=== PATIENT | male | born 1975 | race Caucasian/White ===

== ENCOUNTER 2023-04-11 03:34 | Inpatient (IN) | payer OTHER, SELFPAY ==
[2023-04-11] VITALS (120 sets, daily range): BP systolic 77–126; BP diastolic 45–81; PULSE 63–94; RESP 7–23; TEMP 36.3–36.7; O2SAT 93–100; BMI 40.3; BMI 39.7
--- NOTE | 2023-04-11 03:40 | ECG_ITS ---
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 Measurements Intervals [place] Rate: 65 P: 53 NE: 137 QRS: 44 QRSD: 105 T: -15 QT: 445 QTc: 464 Interpretive Statements SINUS RHYTHM LOW QRS VOLTAGE IN PRECORDIAL LEADS [QRS DEFLECTION < 1.0 mV IN CHEST LEADS] SEPTAL MYOCARDIAL INFARCTION , POSSIBLY ACUTE [40+ ms Q WAVE IN V1/V2] MARKED ST ELEVATION, CONSIDER ANTERIOR INJURY [MARKED ST ELEVATION W/O NORMALLY INFLECTED T-WAVE IN V2-V5] ACUTE [place] No previous ECG available for comparison Electronically Signed On 04-11-2023 21:36:24 SENIOR PORTFOLIO MANAGER by Karlo Ly M.D. [id number]
--- NOTE | 2023-04-11 03:44 | XRR_ITS ---
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 Views: 1 view. COMPARISON: No relevant prior studies available. FINDINGS: Tubes, catheters and devices: Monitor leads and defibrillator pad project over the chest. Lungs: No significant or acute findings. No consolidation. Pleural spaces: No significant costophrenic angle blunting. No pneumothorax. Heart/Mediastinum: Heart size within normal limits given the portable AP technique. Bones/joints: No acute osseous abnormality. XR/XR chest 1V portable [id number] IMPRESSION: No acute abnormality demonstrated.
--- NOTE | 2023-04-11 03:46 | ED_ITS ---
HPI - Chest Pain 2 General: Chief Complaint: Chest Pain Stated Complaint: cp,stomch pain Time Seen by Provider: 04/11/23 03:44 History of Present Illness: 47-year-old male presents emergency depa rtment complaints of substernal chest pain that is a 5 out of 10 that started suddenly while he was driving to work. He states he does feel nauseated. He states the pain is a sharp pressure type pain. He states he has no shortness of breath dizziness or lightheaded feeling. He is a diabetic he denies using tobacco products. He states that exertion seems to make his chest discomfort worse and nothing seems to make it better. Associated symptoms: Reports nausea Review of Systems 2 General: Reports: 10 or more systems reviewed and unremarkable except in HPI and below Card: Reports: chest pain GI: Reports: nausea Physical Exam 2 Narrative: EXAM NARRATIVE: Constitutional: the patient appears well nourished and with normal development. Vital signs reviewed as documented. HENMT: Normocephalic, atraumatic. Extermal ears with normal appearance without drainage. Nose without drainage, normal appearance. Mucus membranes moist. Neck is supple, No jugular venous distension, trachea is midline, no appreciable carotid bruits. No lymphadenopathy. No meningeal signs. Flexion, extension and lateral rotation is without pain. Eyes: Pupils are equal, round, reactive to light and accommodation. No scleral icterus. Extra-ocular movement are intact. Thorax is symmetrical and with equal rise and fall with respirations. Resp: Lungs are clear to auscultation. No wheezes, rales, crackles or ronchi at present. Cardio: Regular rate and rhythm. Positive S1, S2. No appreciable murmurs, rubs or gallops. GI: Abdominal exam reveals normal bowel sounds to all quadrants. No organomegaly. No obvious palpable masses noted. No hepatomegally appreciated. Soft, nontender to palpation. Extremity: Extremities are non-edematous and both femoral and pedal pulses are 2+ and equal bilaterally. Moves all extremities well, sensation in all extremities. Neuro: Alert and oriented x4, person, place, time and situation. Cranial nerves II through XII are grossly intact, there is no focal neurological deficits that I can appreciate at present. Motor strength in the upper and lower extremities are equal and bilateral 5/5. Psych: Cooperative, calm, normal thought process, appropriate judgment. Skin: No lesions, rashes. No gross abnormalities noted. Back: Symmetrical, no obvious deformity, No CVA tenderness Course 2 ED course: STEMI alert was immediately called after twelve-lead EKG was completed. Patient was provided aspirin, Plavix, heparin bolus and heparin drip as well as sublingual nitro. Vital Signs: Vital signs: Vital Signs Temperature 98.1 F 04/11/23 03:42 Pulse Rate 76 04/11/23 03:42 Respiratory Rate 18 04/11/23 03:42 Blood Pressure 126/78 04/11/23 03:42 Pulse Oximetry 100 04/11/23 03:42 Oxygen Delivery Me thod Room Air 04/11/23 03:42 MDM - Chest Pain Medical Decision Making Physical exam completed and documented, I will obtain serial cardiac enzymes, serial twelve-lead EKGs, chest x-ray, CBC, CMP, urinalysis, B-type natriuretic peptide, PT/PTT/INR, and a chest x-ray. I provide cardiac dose aspirin if indicated and nitroglycerin administration if indicated. Pending the review of the twelve-lead EKG I will also consider providing loading dose of heparin and possible heparin drip as well as evaluate the need for nitroglycerin drip, and reevaluate accordingly. I will review any pervious and pertinent medical records for assist in obtaining beneficial medical information to improved the care and treatment of the patient. I will reevaluate in consider hospitalist consultation and cardiology consultation. Medical Records I reviewed the patient's medical records. Lab Data I reviewed the patient's lab results. 04/11/23 03:46 04/11/23 03:46 Radiology Impressions Chest X-Ray 04/11/23 03:44 IMPRESSION: No acute abnormality demonstrated. Laboratory Results WBC 11.74 10^3/uL (3.29-11.43) H 04/11/23 03:46 RBC 5.21 10^6/uL (3.85-5.65) 04/11/23 03:46 Hgb 14.10 g/dL (11.27-16.99) 04/11/23 03:46 Hct 42.9 % (37-53) 04/11/23 03:46 MCV 82.3 fl (82-101) 04/11/23 03:46 MCH 27.1 pg (27-33) 04/11/23 03:46 MCHC 32.9 g/dL (30-55) 04/11/23 03:46 RDW 13.5 % (12.1-15.1) 04/11/23 03:46 Plt Count 337 10^3/cmm (157-399) 04/11/23 03:46 MPV 9.3 fL (7.4-10.4) 04/11/23 03:46 Neut % (Auto) 56.1 % 04/11/23 03:46 Lymph % (Auto) 26.1 % 04/11/23 03:46 George % (Auto) 10.0 % 04/11/23 03:46 Eos % (Auto) 7.1 % 04/11/23 03:46 Baso % (Auto) 0.2 % 04/11/23 03:46 Neut # (Auto) 6.60 10^3/uL (1.8-7.7) 04/11/23 03:46 Lymph # (Auto) 3.1 10^3/uL (0.8-4.8) 04/11/23 03:46 George # (Auto) 1.2 10^3/uL (0.2-0.9) H 04/11/23 03:46 Eos # (Auto) 0.8 10^3/uL (0.0-0.8) 04/11/23 03:46 Baso # (Auto) 0.0 10^3/uL (0.0-0.1) 04/11/23 03:46 Nucleated RBC % (auto) 0 % 04/11/23 03:46 Nucleated RBCs # 0.0 /100WBC 04/11/23 03:46 PT 13.30 SECONDS (12.1-14.9) 04/11/23 03:46 INR 0.98 (0.8-1.2) 04/11/23 03:46 APTT 28.5 SECONDS (23.9-36.7) 04/11/23 03:46 Sodium 132 mmol/L (136-145) L 04/11/23 03:46 Potassium 3.8 mmol/L (3.5-5.1) 04/11/23 03:46 Chloride 96 mmol/L (98-107) L 04/11/23 03:46 Carbon Dioxide 22 mmol/L (22-29) 04/11/23 03:46 Anion Gap 17.8 (5-19) 04/11/23 03:46 BUN 13 mg/dL (6-20) 04/11/23 03:46 Creatinine 0.8 mg/dL (0.7-1.2) 04/11/23 03:46 GFR Calculation 103.6 mL/min (90-130) 04/11/23 03:46 Glucose 296 mg/dL (65-115) H 04/11/23 03:46 Calculated Osmolality 285 mOsm/kg (285-295) 04/11/23 03:46 Calcium 9.0 mg/dL (8.5-10.5) 04/11/23 03:46 Total Bilirubin 0.6 mg/dL (0.15-1.2) 04/11/23 03:46 AST 14 U/L (0-40) 04/11/23 03:46 ALT 14 U/L (0-41) 04/11/23 03:46 Alkaline Phosphatase 106 U/L (40-130) 04/11/23 03:46 Troponin T Baseline 12 ng/L (0-15) 04/11/23 03:46 NT-Pro-B Natriuret Pep < 36 pg/mL (0-125) 04/11/23 03:46 Total Protein 7.5 g/dL (6.6-8.7) 04/11/23 03:46 Albumin 4.0 g/dL (3.5-5.2) 04/11/23 03:46 Globulin 3.5 g/dL (1.3-4.6) 04/11/23 03:46 All radiology interpretation(s) finalized by discharge EKG Data EKG 1: Interpretation: Twelve-lead EKG completed at 340 reviewed at 341 demonstrates sinus rhythm with a ventricular rate of 65 bpm UT interval 137 QRS duration 105 QT 445 QTc [address] elevation in leads V2, V3, V4 with reciprocal changes in leads III and aVF. There is also ST elevation in lead I. These findings are consistent for ST elevated myocardial infarction and the patient currently has active chest pain. Critical Care Time 2 Critical Care Time: Critical Care Time: Yes Total Critical Care Time: 35 Attestation: The patients was emergently evaluated as this patient's presentation and case had a high probability of a clinically significant, sudden, or life threatening deterioration of this patient's initial critical presentation or condition which required my full and direct attention, intervention and personal management. Discharge Plan Discharge Patient Disposition: Admitted As Inpatient Clinical Impression: ST elevation (STEMI) myocardial infarction, Chest pain Condition: Stable Coding Level of Care Code ED Client Care Representative for Gene Obando
[2023-04-11 03:55] LABS: Basophils % 0.2 %; Eosinophils # 0.8 10^3/uL (0.0-0.8); Eosinophils % 7.1 %; Hematocrit 42.9 % (37-53); Lymphocytes # 3.1 10^3/uL (0.8-4.8); Lymphocytes % 26.1 %; Mean Corpuscular HGB Conc 32.9 g/dL (30-55); Mean Corpuscular Hemoglobin 27.1 pg (27-33); Mean Corpuscular Volume 82.3 fl (82-101); Mean Platelet Volume 9.3 fL (7.4-10.4); Monocytes # 1.2 10^3/uL (0.2-0.9); Neutrophils % 56.1 %; Nucleated Red Blood Cells % 0 %; Platelet Count 337 10^3/cmm (157-399); Red Blood Count 5.21 10^6/uL (3.85-5.65); Red Cell Distribution Width 13.5 % (12.1-15.1); White Blood Count 11.74 10^3/uL (3.29-11.43)
[2023-04-11] MEDS: aspirin 81 mg Chew Tablet 324 MG PO (04:00)
--- NOTE | 2023-04-11 04:03 | XACV_ITS ---
Exam Room: 2 Ht: 168 cm Wt: 113 kg BSA: 2.35 m2 Gender: Male : 1975 Any Known Allergies: No known allergies Exam Priority: Routine Indication(s): - Acute anterior wall SC Procedure(s): Procedure Description: Diagnostic procedure Procedure Description: PCI procedure Procedure Description: Left Heart Catheterization Procedure Description: Coronary IVUS Procedure Description: Drug Eluting Coronary Stent Procedure Description: PTCA Procedure Description: Miscellaneous Procedure Description: ACT Procedure Description: Coronary Angiography Diagnostic Cath Status: Emergency Diagnostic Findings * INDICATION: 47 year old male with past medical history of diabetes and prior history of smoking has presented with chest pain that started at 11 PM. It is 5 hours ago. It then started on. At around 2:30 AM he woke up again with chest pain. This time it was severe. It has improved some now. EKG performed in the ER shows anterior ST elevation SC. Powerhouse Electrician was emergently activated. * Left Main has no significant disease. * Circumflex has mild luminal irregularities. * Right Coronary Artery has mild to moderate luminal irregularities. * Proximal Left Anterior Descending: critical 95-99%% stenosis, DARLIN: 2 flow. Thrombus is noted. * Mid Left Anterior Descending: critical 95% stenosis, DARLIN: 2 flow. * First Obtuse Marginal Branch Segment: obstructive ostial 60-70% stenosis, DARLIN: 3 flow. * Coronary angiography shows right dominance. PCI Status: Emergency PCI Indication: Immediate PCI for STEMI Interventional Findings * PROCEDURE DETAIL: We engaged in artery with XB 3.5 guide catheter. IV heparin was administered to maintain anticoagulation. 0.014 run-through guidewire was used to cross the lesions and was put in distal vessel. We proceeded with ballooning with 2.5 x 30 mm semicompliant balloon. This was followed by placement of 3.5 x 34 mm resolute [place] drug-eluting stent from mid to proximal LAD. An overlapping stent measuring 4.0 x 38 mm stent was put in proximal to mid position. There was still some residual stenosis proximally. This was covered with 4.0 x 18mm resolute Antonia drug-eluting stent. At this time we performed IVUS that showed underexpansion of stents in proximal to mid segment. Stents were postdilated using 4.0 x 20 mm NC balloon at high pressure. Final angiogram showed excellent stent expansion, no residual stenosis and DARLIN-3 flow. Guidewire and guide catheter were removed. Patient left the Powerhouse Electrician in a stable condition. * Proximal Left Anterior Descendin% stenosis treated with a MDT R ANTONIA 4.0X38 MELINA, MDT R ANTONIA 4.0X18 MELINA, and MDT NC EUPHORA RX [id number] BALLOON. 0% residual stenosis, DARLIN: 3 flow. * Mid Left Anterior Descendin% stenosis treated with a AB TREK 2.50X30 RX BALLOON, MDT R ANTONIA 3.5X34 MELINA, and MDT NC EUPHORA RX [id number] BALLOON. 0% residual stenosis, DARLIN: 3 flow. Conclusions 1. Critical proximal to mid LAD serial stenosis with thrombus s/p successful revascularization with 3 stents. 2. Proximal Left Anterior Descending was treated with a Drug Eluting Stent, Drug Eluting Stent, and Balloon. 3. Mid Left Anterior Descending was treated with a Balloon, Drug Eluting Stent, and Balloon. Recommendations * Dual antiplatelet therapy with aspirin and Brilinta for atleast 1 year. * High intensity statin therapy. * Outpatient cardiology follow up in 4 weeks. Interventional RX Recommendation: PCI w/o planned CABG Diagnostic RX Recommendation: PCI w/o planned CABG Anticoagulation: Heparin Pressures Phase:Rest AO : 83 / 60 ( 71 ) @ 4:34:00 AM 79 / 60 ( 70 ) @ 4:42:00 AM 82 / 53 ( 60 ) @ 4:55:00 AM 90 / 53 ( 66 ) @ 5:04:00 AM 108 / 63 ( 80 ) @ 5:18:00 AM 107 / 63 ( 80 ) @ 5:18:00 AM LV : 124 / 12 / 38 @ 5:18:00 AM 120 / 10 / 35 @ 5:18:00 AM Valves Phase:DefaultPhase AV : 12.0 @ 5:26:36 AM AV Mean Gradient: 9.0 @ 5:26:36 AM 9.0 @ 5:26:36 AM Clinical Evaluation EBL: 5mL-10mL Procedural Details Pre-Procedure Time Out. Identified patient by full name and date of as verbalized by the patient/guarantor. Does the consent match the physician's order: N/A Emergent; Informed Consent not obtained due to time critical life threat. Accurate & Complete Informed Consent: N/A Emergent; Informed Consent not obtained due to time critical life threat. Inpatient/Outpatient History & Physical on Chart: N/A Emergent; Informed Consent not obtained due to time critical life threat. If H&P is completed, is and addenduem needed: N/A Emergent; Informed Consent not obtained due to time critical life threat; If yes, is the addendum complete: N/A Emergent; Informed Consent not obtained due to time critical life threat. Visualize and Verify Site with Patient/Guarantor: N/A. Relevant Radiology Images available: N/A Emergent; Informed Consent not obtained due to time critical life threat. Pre-op teaching completed and patient verbalized understanding. The risks, benefits, and alternatives of sedation and/or procedure were discussed by physician. The patient agrees to continue. Procedure started. [facility] Clinical Fraility Score: 3: Managing Well. Powerhouse Electrician Indications: ACS <= 24 hours. Chest Pain Symptom Assessment: Typical Angina Symptoms. Cardiovascular Instability: Yes, if yes, Persistant Ischemic Symptoms. Correct patient, site and procedure confirmed by cath team. Current diagnosis: STEMI. PERRLA. Strong, equal hand mint machine operator bilaterally. Lungs clear x 5 lobes. IV Site on Arrival: 18 gauge in the right anticubital. IV Site on Arrival: 18 gauge in the left anticubital. IV Fluids: 0.9% NaCl at KVO. 0 mL infused prior to qc lab technician. Pre Procedural Pulses: bilateral radial was 3+. Oxygen started at 2liters/min via nasal canula. right groin was prepped with chloroprep then draped in the usual sterile fashion. right radial was prepped with chloroprep then draped in the usual sterile fashion. Physician notified. Baseline sample Acquired. HR: 78 BPM. Patient's family unavailable. Equipment: 6F - Radial. Cardiac Cath Pack. ACIST Manifold Kit Model BT 2000. Heparinized Saline (2 units/mL), 1000 mL bag. Physician arrived. Physician scrubbed in. Immediate Pre-Procedure Time Out. Correct Patient: N/A Emergent; Informed Consent not obtained due to time critical life threat; Correct Procedure: N/A Emergent; Informed Consent not obtained due to time critical life threat; Correct Site: N/A Emergent; Informed Consent not obtained due to time critical life threat; Correct Patient Position: N/A Emergent; Informed Consent not obtained due to time critical life threat; Correct Supplies: N/A Emergent; Informed Consent not obtained due to time critical life threat; Dried Flammable Prep: N/A Emergent; Informed Consent not obtained due to time critical life threat; Blood Products Available: N/A Emergent; Informed Consent not obtained due to time critical life threat;. Lidocaine 1% infiltrated to the right radial. Arterial access obtained. 6 turkish XB 3 guide catheter was inserted over the exchange J wire. Cineography of the LCA performed. Runthrough guidewire was advanced through the guide catheter to lesion in the LAD. add inventory: endoflator, co-ems helicopter pilot, Runthrough guidewire. Inflation number : 1 A AB TREK 2.50X30 RX BALLOON was prepped and advanced across the Mid LAD , then inflated to 8 BRUCE for 0:12 seconds. Inflation number: 2 The AB TREK 2.50X30 RX BALLOON was reinflated across the Mid LAD, to 8 BRUCE for 0:11 seconds. Inflation number: 3 The AB TREK 2.50X30 RX BALLOON was reinflated across the Mid LAD, to 11 BRUCE for 0:12 seconds. Inflation number: 4 The AB TREK 2.50X30 RX BALLOON was reinflated across the Mid LAD, to 14 BRUCE for 0:19 seconds. Balloon out. Stent inserted to lesion in the mid LAD. Inflation Number : 5 A MDT R ANTONIA 3.5X34 MELINA -Lot Number# [id number] was prepped and advanced across the Mid LAD. The stent was deployed at 12 BRUCE for 0:21 seconds. Exp 2024-03-03. Stent balloon out over wire. Results checked. Inflation Number : 1 A MDT R ANTONIA 4.0X38 MELINA -Lot Number# [id number] prepped and advanced across the Prox LAD. The stent was deployed at 12 BRUCE for 0:23 seconds. Exp 2023-06-06. 4.0 x 15 Resolute [place] stent in, size too short. Removed intact. Inflation Number : 2 A MDT R ANTONIA 4.0X18 MELINA -Lot Number# [id number] prepped and advanced across the Prox LAD. The stent was deployed at 12 BRUCE for 0:22 seconds. Exp 2025-08-08. Stent balloon out over wire. IVUS catheter in. Ultrasound performed of the LAD post PCI. IVUS catheter out. Inflation number : 6 A MDT NC EUPHORA RX 4.93M56CD BALLOON was prepped and advanced across the Mid LAD , then inflated to 12 BRUCE for 0:21 seconds. Inflation number: 7 The MDT NC EUPHORA RX 4.95N80RT BALLOON was reinflated across the Mid LAD, to 18 BRUCE for 0:15 seconds. Inflation number: 8 The MDT NC EUPHORA RX 4.84N24RV BALLOON was reinflated across the Mid LAD, to 18 BRUCE for 0:11 seconds. Inflation number: 9 The MDT NC EUPHORA RX 4.11V87EE BALLOON was reinflated across the Mid LAD, to 20 BRUCE for 0:08 seconds. Inflation number: 3 The MDT NC EUPHORA RX 4.04Z89TH BALLOON was reinflated across the Prox LAD, to 20 BRUCE for 0:13 seconds. Balloon out. Results checked. IVUS catheter in. Ultrasound performed of the LAD post PCI. IVUS catheter out. PCI Indication : Immediate PCI for STEMI. ACT drawn. Results out iof range HI. Will redraw. Wire out. Guide catheter out over the exchange J wire. A 5 turkish JR4 catheter in over the exchange J wire. Multiple views taken of right coronary artery. Catheter redirected to the LV. EDP Sample taken: LV 124/12,38; HR: 80 BPM; SpO2: 99%. ACT drawn. Results 385 seconds. Therapeutic limits - pre-heparin administration 90-150 seconds and monitoring heparin during a vascular procedure >250 seconds. Pullback taken: LV 120/10,35; AO 108/63(80); Mean: 9mmHg, Peak to Peak: 12mmHg, SEP: 17sec/min; HR: 77 BPM; SpO2: 98%. Catheter removed over the exchange J wire. Dr. Ruvalcaba scrubbed out. A TR Band was successful obtaining hemostatsis at the Right Radial artery insertion site. Post Procedure: Pulses reassessed and unchanged. PERRLA. Strong, equal hand mint machine operator bilaterally. No VTE prophylaxis required. Medication's Wasted: Nitro = 49.8 mg. Medication's Wasted: Other = Versed 1 mg. Medication's Wasted: Heparin = 3000 units. Medication's Wasted: Other = Aggrastat 100 mL. Medication's Wasted: Other = Lasix 60 mg. Medication's Wasted: Other = Cardene 24.75 mg. Total IV fluids: 66 mL. Post-op diagnosis: Subtotal occlusion of Prox to Mid LAD s/p 3 stents. PCI Indication: STEMI. Complications: none. Estimated blood loss: 5mL-10mL. Responsiveness - Normal response to verbal stimuli; alert and oriented, PERRLA. Airway - Unaffected, no intervention required; spontaneous ventilation. Circulation: W/N/L, pulses unchanged. Nausea/Vomiting: No. Procedure completed. Patient transferred by wheelchair to ICU. Vital chart was stopped. Access Site Site: Right Radial artery Sheath Size: 6 Fr Hemostasis Method: TR Band Hemostasis Success: Successful Procedure Medications Start: 4:29 AM Stop: 4:29 AM Medication: Versed Amount: 1 mg Route: I.V. Start: 4:30 AM Stop: 4:30 AM Medication: Fentanyl Amount: 50 mcg Route: I.V. Start: 4:30 AM Stop: 4:30 AM Medication: Versed Amount: 1 mg Route: I.V. Start: 4:31 AM Stop: 4:31 AM Medication: Nitrogylcerin Amount: 200 mcg Route: I.A. Start: 4:32 AM Stop: 4:32 AM Medication: Heparin Amount: 6000 units Route: I.V. Start: 4:44 AM Stop: 4:44 AM Medication: Versed Amount: 1 mg Route: I.V. Start: 4:44 AM Stop: 4:44 AM Medication: Fentanyl Amount: 50 mcg Route: I.V. Start: 4:46 AM Stop: 4:46 AM Medication: Heparin Amount: 1000 units Route: I.V. Start: 4:54 AM Stop: 4:54 AM Medication: Versed Amount: 1 mg Route: I.V. Start: 4:59 AM Stop: 4:59 AM Medication: Versed Amount: 1 mg Route: I.V. Start: 4:59 AM Stop: 4:59 AM Medication: Heparin Amount: 1000 units Route: I.V. Start: 5:08 AM Stop: 5:08 AM Medication: Neosynephrine Amount: 100 mcg Route: I.V. Start: 5:09 AM Stop: 5:09 AM Medication: Cardene Amount: 250 mcg Route: I.C. Start: 5:19 AM Stop: 5:19 AM Medication: Lasix (furosemide) Amount: 40 mg Route: I.V. I, the attending physician, have reviewed and verified all procedure medications. Yes, all medications given per verbal order History/Risk Factors Hypertension: No Dyslipidemia: No Peripheral Arterial Disease (PAD): No Myocardial Infarction (SC): No Obesity: Yes Renal Disease: No Tobacco Use: Never Prior Interventions PCI: No CABG: No Valve Surgery: No Report Signatures Finalized by Ever Ruvalcaba MD on 04/25/2023 04:57 PM
[2023-04-11 04:06] LABS: INR 0.98 (0.8-1.2)
[2023-04-11 04:07] LABS: Partial Thromboplastin Time 28.5 SECONDS (23.9-36.7)
[2023-04-11] MEDS: clopidogrel 300 mg Tablet 600 MG PO (04:08)
[2023-04-11] MEDS: heparin 5,000 unit/mL INJ 1 mL 4000 UNIT IVP (04:08)
[2023-04-11 04:14] LABS: Troponin(5th) Baseline 12 ng/L (0-15)
--- NOTE | 2023-04-11 04:16 | P.HP_ITS ---
Providers/Chief Complaint 2 Admitting Physician: Ever Ruvalcaba MD/ Cardiology Chief Complaint: cp,stomch pain History of Present Illness Miles malcolm is a 47 year old male with past medical history of diabetes and prior history of smoking has presented with chest pain that started at 11 PM. It is 5 hours ago. It then started on. At around 2:30 AM he woke up again with chest pain. This time it was severe. It has improved some now. EKG performed in the ER shows anterior ST elevation [place]. Candy Cooker Helper was emergently activated. Review of Systems 2 General: Reports: 10 or more systems reviewed and unremarkable except in HPI and below Card: Reports: chest pain Resp: Denies: dyspnea GI: Reports: nausea Musc: Denies: back pain Medications/Allergies Allergies Allergy/AdvReac Type Severity Reaction Status Date / Time No Known Allergies Allergy Verified 04/11/23 03:48 Vitals/I&O/Wt Last Vital Signs Temp 98.1 F 04/11/23 03:42 Pulse 76 04/11/23 03:42 Resp 18 04/11/23 03:42 BP 126/78 04/11/23 03:42 Pulse Ox 100 04/11/23 03:42 O2 Del Method Room Air 04/11/23 03:42 Weight last 48 hrs Weight 250 lb Physical Exam 2 Narrative: GENERAL: Patient is alert, awake and oriented x3. [] NECK: No jugular vein distension. [] HEENT: No cyanosis. No icterus. No pallor. [] HEART: Regular S1 and S2. No murmur, rub or gallop. [] LUNGS: Clear to auscultate bilaterally. [] CENTRAL NERVOUS SYSTEM: Grossly nonfocal. [] EXTREMITIES: Lower extremities with no edema bilaterally. Data 04/11/23 03:46 04/11/23 03:46 A&P Assessment and plan (1) ST elevation (STEMI) myocardial infarction: Qualifiers: Involved coronary artery: unspecified coronary artery Qualified Code(s): I21.3 - ST elevation (STEMI) myocardial infarction of unspecified site (2) Diabetes: Plan Patient has presented with anterior wall ST elevation [place]. He will be emergently taken to cardiac [employer] Helper for coronary angiography and PCI. Risks and benefits of the procedure have been discussed He has been loaded with aspirin and Plavix. IV heparin bolus given. We will order echocardiogram. Attestations 2 Medical Necessity Statement*: Care expected to cross 2 midnights. Patient has presented with acute anterior wall ST elevation [place] and is emergently going to cardiac [employer]per for coronary angiography with PCI. Coding Level of Care Code Acute Code for [facility] Fwd Diagnoses ST elevation (STEMI) myocardial infarction I21.3 Involved coronary artery: unspecified coronary artery Diabetes E11.9
[2023-04-11 04:23] LABS: Alanine Aminotransferase 14 U/L (0-41); Alkaline Phosphatase 106 U/L (40-130); Blood Urea Nitrogen 13 mg/dL (6-20); Carbon Dioxide 22 mmol/L (22-29); Chloride 96 mmol/L (98-107); Globulin 3.5 g/dL (1.3-4.6); Glomerular Filtration Rate 103.6 mL/min (90-130); Glucose 296 mg/dL (65-115); NT Pro B Type Natriuretic Pept < 36 pg/mL (0-125); Osmolality Calculated 285 mOsm/kg (285-295); Sodium 132 mmol/L (136-145); Total Bilirubin 0.6 mg/dL (0.15-1.2); Total Protein 7.5 g/dL (6.6-8.7)
[2023-04-11 04:26] LABS: Anion Gap 17.8 (5-19); Aspartate Amino Transferase 14 U/L (0-40); Potassium 3.8 mmol/L (3.5-5.1)
--- NOTE | 2023-04-11 05:34 | USCV_ITS ---
Miles Morales Age: 47 Gender: M : 1975 Exam Date: 04/11/2023 06:41 Ordering Phys: Ever Ruvalcaba M.D ([email or web address]) Technologist: Troy Butler [place] [facility] [place]: [place] BP: / HR: 75 Rhythm: Sinus Technical Quality: Adequate MEASUREMENTS (Male / Female) Normal Values 2D ECHO LV Diastolic Diameter PLAX 3.3 cm 4.2 - 5.9 / 3.9 - 5.3 cm LV Systolic Diameter PLAX 2.3 cm IVS Diastolic Thickness 1.1 cm 0.6 - 1.0 / 0.6 - 0.9 cm IVS Systolic Thickness 1.5 cm LVPW Diastolic Thickness 1.2 cm 0.6 - 1.0 / 0.6 - 0.9 cm LVPW Systolic Thickness 1.9 cm LVOT Diameter 2.1 cm LV Ejection Fraction 2D Teich 58.6 % LV Ejection Fraction MOD 2C 32.4 % LV Ejection Fraction 2C AL 32.6 % LA Diameter 3.8 cm M-MODE Aortic Annulus Diameter 2.9 cm LA Ao Ratio MM 1.5 DOPPLER AV Peak Velocity 130.0 cm/s LVOT Peak Velocity 92.0 cm/s AV Area Cont Eq vti 2.8 cm squared AV Area Cont Eq pk 2.4 cm squared MV Area PHT 4.6 cm squared Mitral E to A Ratio 0.8 MV E' Velocity 29.5 cm/s Mitral E to MV E' Ratio 6.5 Mitral E to LV E' Lateral Ratio 5.5 Mitral E to LV E' Septal Ratio 7.9 TR Peak Velocity 143.3 cm/s TR Peak Gradient 8.2 mmHg TV Peak E Velocity 84.0 cm/s Right Atrial Pressure 3.0 mmHg Pulmonary Artery Systolic Pressu 11.2 mmHg RV Acceleration Time 0.2 s FINDINGS Left Ventricle Technically limited quality echocardiogram because of poor ultrasonic windows. Left ventricle is normal in size. LV systolic function is moderately reduced with EF of 35-40%. Severe hypokinesis of anterior wall. Grade 1 diastolic dysfunction Right Ventricle Normal in size and function Right Atrium Normal in size Left Atrium Normal in size Mitral Valve Structurally normal mitral valve. Mitral valve regurgitation. Aortic Valve Structurally normal aortic valve. No significant stenosis or regurgitation. Tricuspid Valve Mild tricuspid regurgitation. Insufficient TR jet to calculate RVSP. Pulmonic Valve Not well visualized Pericardium Normal Aorta Normal in size IVC Not well visualized CONCLUSIONS Technically limited quality echocardiogram because of poor ultrasonic windows. LV systolic function is moderately reduced with EF of 35 to 40%. Above-mentioned regional wall motion abnormalities. Mild mitral regurgitation Mild tricuspid regurgitation No comparison studies are available. Ever Ruvalcaba MD (Electronically Signed) Final Date: 11 April 2023 16:53 S
--- NOTE | 2023-04-11 05:44 | ECG_ITS ---
[facility] Test Date: 2023-04-11 Pat Name: Miles Morales Department: Room: [facility] Gender: Male Clinical Lab Technologist: : 1975 Requested By: Julito Quinteros Order Number: [id number] Sharri MD: Karlo Ly M.D. Measurements Intervals [place] Rate: 78 P: 37 IL: 143 QRS: 50 QRSD: 97 T: 38 QT: 403 QTc: 461 Interpretive Statements SINUS RHYTHM LOW QRS VOLTAGE IN PRECORDIAL LEADS [QRS DEFLECTION < 1.0 mV IN CHEST LEADS] ANTEROSEPTAL MYOCARDIAL INFARCTION [40+ ms Q WAVE IN V1-V4], POSSIBLY ACUTE ST ELEVATION, CONSIDER INFERIOR INJURY [MARKED ST ELEVATION W/O NORMALLY INFLECTED T WAVE IN II/aVF] ACUTE NC Compared to ECG 04/11/2023 03:40:21 No significant changes Electronically Signed On 04-11-2023 21:46:21 SLIP OPERATOR by Karlo Ly M.D. [email or web address] [email or web address].Enpirion/store/[id number]
[2023-04-11 08:05] LABS: Glucose Point of Care 205 mg/dL (70-110)
[2023-04-11] MEDS: metoprolol tartrate 25 mg Tablet 12.5 MG PO ×2 (08:08→20:52)
[2023-04-11] MEDS: aspirin 81 mg EC Tablet PO (08:08)
[2023-04-11] MEDS: insulin lispro 100 unit/1 mL SUBCUT ×4 (09:06→21:04)
--- NOTE | 2023-04-11 09:44 | ECG_ITS ---
[facility] Test Date: 2023-04-11 Pat Name: Miles Morales Department: Room: [facility]05 Gender: Male Wincher: : 1975 Requested By: Julito Quinteros Order Number: [id number] Sharri MD: Karlo Ly M.D. Measurements Intervals [place] Rate: 73 P: 30 AL: 134 QRS: 64 QRSD: 93 T: 55 QT: 416 QTc: 459 Interpretive Statements SINUS RHYTHM LOW QRS VOLTAGE IN PRECORDIAL LEADS [QRS DEFLECTION < 1.0 mV IN CHEST LEADS] ANTEROSEPTAL MYOCARDIAL INFARCTION [40+ ms Q WAVE IN V1-V4], OF INDETERMINATE AGE Compared to ECG 04/11/2023 05:58:32 ST (T wave) deviation no longer present Myocardial infarct finding still present Electronically Signed On 04-11-2023 21:46:25 DIRECTOR OF EXHIBITS by Karlo Ly M.D. [email or web address]Get Smart Contentaultman [facility]/store/OM/[id number]
[2023-04-11 10:29] LABS: Troponin 5 6HR 4581 ng/L (0-15); Troponin 5 6HR Delta 4569 ng/L (0-12)
[2023-04-11 11:04] LABS: Glucose Point of Care 214 mg/dL (70-110)
[2023-04-11] MEDS: acetaminophen 325 mg Tablet 650 MG PO ×2 (13:28→20:53)
[2023-04-11 16:45] LABS: Glucose Point of Care 144 mg/dL (70-110)
[2023-04-11] MEDS: ticagrelor 90 mg Tablet 180 MG PO (17:34)
--- NOTE | 2023-04-11 18:33 | PC.NURSE ---
Shift SUmmary: Uneventful shift. Patient rested in bed for much of the day, but was up to a chair for about 3 hours. Ambulated in the hallway with no issues and up the the bathroom multiple times. TR band removed without bleeding.
[2023-04-11] MEDS: atorvastatin 40 mg Tablet 80 MG PO (20:52)
[2023-04-11] MEDS: alum-mag-hydroxide-sime 30 mL UDC PO (20:55)
[2023-04-11 21:04] LABS: Glucose Point of Care 175 mg/dL (70-110)
[2023-04-12] VITALS (18 sets, daily range): BP systolic 72–122; BP diastolic 48–75; PULSE 62–85; RESP 18; TEMP 36.5–37.1; O2SAT 94–97
[2023-04-12 03:57] LABS: Basophils % 0.2 %; Eosinophils # 0.7 10^3/uL (0.0-0.8); Eosinophils % 4.5 %; Hematocrit 40.1 % (37-53); Lymphocytes # 1.9 10^3/uL (0.8-4.8); Lymphocytes % 13.2 %; Mean Corpuscular HGB Conc 32.7 g/dL (30-55); Mean Corpuscular Hemoglobin 26.5 pg (27-33); Mean Corpuscular Volume 81.2 fl (82-101); Mean Platelet Volume 9.2 fL (7.4-10.4); Monocytes # 1.5 10^3/uL (0.2-0.9); Monocytes % 10.4 %; Neutrophils # 10.39 10^3/uL (1.8-7.7); Neutrophils % 71.2 %; Nucleated Red Blood Cells % 0 %; Platelet Count 297 10^3/cmm (157-399); Red Blood Count 4.94 10^6/uL (3.85-5.65); Red Cell Distribution Width 13.6 % (12.1-15.1); White Blood Count 14.58 10^3/uL (3.29-11.43)
[2023-04-12 04:19] LABS: Blood Urea Nitrogen 9 mg/dL (6-20); Carbon Dioxide 25 mmol/L (22-29); Chloride 97 mmol/L (98-107); Glomerular Filtration Rate 120.9 mL/min (90-130); Glucose 181 mg/dL (65-115); Osmolality Calculated 277 mOsm/kg (285-295); Sodium 132 mmol/L (136-145)
[2023-04-12 04:22] LABS: Anion Gap 13.6 (5-19); Potassium 3.6 mmol/L (3.5-5.1)
[2023-04-12 07:39] LABS: Glucose Point of Care 168 mg/dL (70-110)
--- NOTE | 2023-04-12 08:09 | P.DS_ITS ---
Discharge Providers Date of Admission: 04/11/23 05:36 Date of Discharge: April 12, 2023 Attending Provider at Admission: Ever Ruvalcaba M.D Attending Provider at Discharge: Ever Ruvalcaba M.D Diagnoses at Discharge Discharge Diagnosis (1) ST elevation (STEMI) myocardial infarction: Status: Acute Qualifiers: Involved coronary artery: unspecified coronary artery Qualified Code(s): I21.3 - ST elevation (STEMI) myocardial infarction of unspecified site (2) Diabetes: Status: Acute Reason for Visit Reason for Visit: Chest pain Brief History: 47 year old male with past medical history of diabetes and prior history of smoking has presented with chest pain that started at 11 PM. It is 5 hours ago. It then improved. At around 2:30 AM he woke up again with chest pain. This time it was severe. It has improved some now. EKG performed in the ER shows anterior ST elevation [place]. [employer] was emergently activated. Hospital Course Hospital Course Coronary angiography demonstrated serial critical lesions from proximal to mid LAD ranging from 90 to 99% stenosis. Thrombus was also seen in proximal LAD. This was culprit for ST elevation [place]. He underwent successful revascularization with MELINA x 3. OM branch also has ostial lesion however it is small to medium sized vessel. Plan for medical management. Echo shows a moderately reduced LV systolic function. He has tolerated medications. Plan for discharge home with close cardiology follow-up. Physical Exam Narrative: GENERAL: Patient is alert, awake and oriented x3. [] NECK: No jugular vein distension. [] HEENT: No cyanosis. No icterus. No pallor. [] HEART: Regular S1 and S2. No murmur, rub or gallop. [] LUNGS: Clear to auscultate bilaterally. [] CENTRAL NERVOUS SYSTEM: Grossly nonfocal. [] EXTREMITIES: Lower extremities with no edema bilaterally. Discharge Data Studies Completed and Pending Completed Studies During Hospitalization Category Date Time Status XR chest 1V portable [id number] Stat Exams 04/11/23 03:44 Completed CV. echo complete* [id number] Routine Ultrasound 04/11/23 05:34 Completed Pending at discharge Category Date Time Status HAMMER [employer]NER request for service Routine Exams 04/11/23 04:03 Taken Basic Metabolic Panel AM LABS Lab 04/13/23 04:00 Ordered Basic Metabolic Panel AM LABS Lab 04/14/23 04:00 Ordered Complete Blood Count w/Auto AM LABS Lab 04/13/23 04:00 Ordered Complete Blood Count w/Auto AM LABS Lab 04/14/23 04:00 Ordered Radiology Impressions Chest X-Ray 04/11/23 03:44 IMPRESSION: No acute abnormality demonstrated. Laboratory Results WBC 14.58 10^3/uL (3.29-11.43) H 04/12/23 03:40 RBC 4.94 10^6/uL (3.85-5.65) 04/12/23 03:40 Hgb 13.10 g/dL (11.27-16.99) 04/12/23 03:40 Hct 40.1 % (37-53) 04/12/23 03:40 MCV 81.2 fl (82-101) L 04/12/23 03:40 MCH 26.5 pg (27-33) L 04/12/23 03:40 MCHC 32.7 g/dL (30-55) 04/12/23 03:40 RDW 13.6 % (12.1-15.1) 04/12/23 03:40 Plt Count 297 10^3/cmm (157-399) 04/12/23 03:40 MPV 9.2 fL (7.4-10.4) 04/12/23 03:40 Neut % (Auto) 71.2 % 04/12/23 03:40 Lymph % (Auto) 13.2 % 04/12/23 03:40 [place] % (Auto) 10.4 % 04/12/23 03:40 Eos % (Auto) 4.5 % 04/12/23 03:40 Baso % (Auto) 0.2 % 04/12/23 03:40 Neut # (Auto) 10.39 10^3/uL (1.8-7.7) H 04/12/23 03:40 Lymph # (Auto) 1.9 10^3/uL (0.8-4.8) 04/12/23 03:40 [place] # (Auto) 1.5 10^3/uL (0.2-0.9) H 04/12/23 03:40 Eos # (Auto) 0.7 10^3/uL (0.0-0.8) 04/12/23 03:40 Baso # (Auto) 0.0 10^3/uL (0.0-0.1) 04/12/23 03:40 Nucleated RBC % (auto) 0 % 04/12/23 03:40 Nucleated RBCs # 0.0 /100WBC 04/12/23 03:40 PT 13.30 SECONDS (12.1-14.9) 04/11/23 03:46 INR 0.98 (0.8-1.2) 04/11/23 03:46 APTT 28.5 SECONDS (23.9-36.7) 04/11/23 03:46 Sodium 132 mmol/L (136-145) L 04/12/23 03:40 Potassium 3.6 mmol/L (3.5-5.1) 04/12/23 03:40 Chloride 97 mmol/L (98-107) L 04/12/23 03:40 Carbon Dioxide 25 mmol/L (22-29) 04/12/23 03:40 Anion Gap 13.6 (5-19) 04/12/23 03:40 BUN 9 mg/dL (6-20) 04/12/23 03:40 Creatinine 0.7 mg/dL (0.7-1.2) 04/12/23 03:40 GFR Calculation 120.9 mL/min (90-130) 04/12/23 03:40 Glucose 181 mg/dL (65-115) H 04/12/23 03:40 POC Glucose 168 mg/dL (70-110) H 04/12/23 07:36 Calculated Osmolality 277 mOsm/kg (285-295) L 04/12/23 03:40 Calcium 9.0 mg/dL (8.5-10.5) 04/12/23 03:40 Total Bilirubin 0.6 mg/dL (0.15-1.2) 04/11/23 03:46 AST 14 U/L (0-40) 04/11/23 03:46 ALT 14 U/L (0-41) 04/11/23 03:46 Alkaline Phosphatase 106 U/L (40-130) 04/11/23 03:46 Troponin T Baseline 12 ng/L (0-15) 04/11/23 03:46 Troponin T Hi Sens 6Hr 4581 ng/L (0-15) H 04/11/23 09:35 Troponin T Hi Sens 6Hr Delta 4569 ng/L (0-12) H* 04/11/23 09:35 NT-Pro-B Natriuret Pep < 36 pg/mL (0-125) 04/11/23 03:46 Total Protein 7.5 g/dL (6.6-8.7) 04/11/23 03:46 Albumin 4.0 g/dL (3.5-5.2) 04/11/23 03:46 Globulin 3.5 g/dL (1.3-4.6) 04/11/23 03:46 Vitals Last Vital Signs Temp 98.6 F 04/12/23 07:30 Pulse 69 04/12/23 07:30 Resp 11 L 04/11/23 09:25 BP 109/68 04/12/23 07:30 Pulse Ox 94 04/12/23 03:00 O2 Del Method Room Air 04/12/23 03:00 Discharge Plan Discharge Patient Disposition: Home Condition: Stable Prescriptions: New atorvastatin 40 mg Tablet 80 mg PO BEDTIME Qty: 90 3RF aspirin 81 mg Tablet,Delayed Release (Dr/Ec) 81 mg PO DAILY Qty: 90 3RF metoprolol tartrate 25 mg Tablet 12.5 mg PO BID@0900,2100 Qty: 120 3RF Brilinta 90 mg Tablet 90 mg PO BID Qty: 120 3RF Continued Trulicity 1.5 mg/0.5 mL pen injector 1.5 mg SUBCUT Q7D Rx Instructions: ON MONDAY Nexium 20 mg Capsule,Delayed Release(Dr/Ec) 20 mg PO DAILY Discontinued lisinopril-hydrochlorothiazide 20-12.5 mg tablet 1 tab PO DAILY Discharge Orders: Discharge Order (Routine); Ordered 04/12/23 Ordered By: Ever Ruvalcaba Referrals: Citlali Lorenzo NP [Referring] - Eun Howard FNP [Nurse Practitioner] - 7-10 days Discharge Diet: Cardiac and Diabetic Discharge Activity: Increase activity as tolerated Patient Instructions: Coronary Angioplasty (DC), Opioid Safety Discharge Attestations Time Spent in Discharge Care*: greater than 30 min Quality Metrics Clinical Quality Measures [ Acute Myocardial Infaction { Clinical Trial Participant: No; Contraindication to aspirin: None; Aspirin prescribed; Contraindication to statin: None; Statin prescribed; Contraindication to PCI: None; PCI performed;}] Coding Level of Care Code Acute Code for [facility] Fwd Diagnoses ST elevation (STEMI) myocardial infarction I21.3 Involved coronary artery: unspecified coronary artery Diabetes E11.9
[2023-04-12] MEDS: metoprolol tartrate 25 mg Tablet 12.5 MG PO (08:10)
[2023-04-12] MEDS: aspirin 81 mg EC Tablet PO (08:11)
[2023-04-12] MEDS: insulin lispro 100 unit/1 mL SUBCUT (08:12)
[2023-04-12] MEDS: ticagrelor 90 mg Tablet PO (08:12)
--- NOTE | 2023-04-12 09:44 | PC.NURSE ---
Patient discharged at 0915. Patient is awake, alert, and oriented. Bilateral IVs removed. new medication, new appointment, wrist restrictions, and activity educaiton provided to patient and his who was at bedside. Emphasized importance of taking brillinta as ordered. Received morning brillinta and aspirin. work release provided. Patient signature form signed.
== END 2023-04-12 09:15 | disposition home or self-care (01) | DRG 322 ==
LOC: ER 04:00 → CCL 04:01 → ICU 05:37
PROVIDERS: Admitting Provider Internal Medicine; Emergency Provider Internal Medicine; Visit Provider Internal Medicine
PROC: 027036Z Dilation of Coronary Artery, One Artery with Three Drug-eluting Intraluminal Devices, Percutaneous Approach (ICD-10-PCS; principal; 2023-04-11 04:00)
PROC: 027036Z Dilation of Coronary Artery, One Artery with Three Drug-eluting Intraluminal Devices, Percutaneous Approach (ICD-10-PCS; 2023-04-11 04:00)
DX: I21.02 ST elevation (STEMI) myocardial infarction involving left anterior descending coronary artery (principal); I50.20 Unspecified systolic (congestive) heart failure; E11.9 Type 2 diabetes mellitus without complications; Z87.891 Personal history of nicotine dependence; Z79.85 Long-term (current) use of injectable non-insulin antidiabetic drugs
CPT/HCPCS: 36415; 36416; 71045; 80048; 80053; 82962; 83880; 84484; 85025; 85347; 85610; 85730; 92978; 93005; 93306; 93458; 96361; 96365; 96367; 96372; 96375; 96376; 99152; 99153; 99285; C1725; C1753; C1769; C1874; C1887; C1894; C9600; J1644; J1815; J1940; J2250; J2371; J3010; J3490; J7050; Q9967

== ENCOUNTER → 2023-04-21 10:17 | Outpatient (BNVA) | payer OTHER, SELFPAY | PROVIDERS: PCP Nurse Practitioner Family; Visit Provider Nurse Practitioner Family | DX: I25.10 Atherosclerotic heart disease of native coronary artery without angina pectoris (principal); Z09 Encounter for follow-up examination after completed treatment for conditions other than malignant neoplasm; Z79.899 Other long term (current) drug therapy | CPT/HCPCS: 36415; 80048 ==

== ENCOUNTER 2023-05-09 10:25 | Outpatient (RCR) | payer OTHER, SELFPAY | END 2023-06-01 23:59 | disposition home or self-care (01) | LOC: CR 10:25 | PROVIDERS: PCP Nurse Practitioner Family; Referring Provider Internal Medicine; Visit Provider Internal Medicine | DX: Z95.5 Presence of coronary angioplasty implant and graft (principal) | CPT/HCPCS: 93798 ==

== ENCOUNTER 2023-06-02 11:02 | Outpatient (RCR) | payer OTHER, SELFPAY | END 2023-07-02 23:59 | disposition home or self-care (01) | LOC: CR 11:02 | PROVIDERS: PCP Nurse Practitioner Family; Referring Provider Internal Medicine; Visit Provider Internal Medicine | DX: Z95.5 Presence of coronary angioplasty implant and graft (principal) | CPT/HCPCS: 93798 ==

== ENCOUNTER 2023-12-07 14:43 | Outpatient (CLI) | payer OTHER, SELFPAY ==
--- NOTE | 2023-12-07 15:00 | USCV_ITS ---
Miles Morales Age: 48 Gender: M : 1975 Exam Date: 12/07/2023 15:10 Ordering Phys: Ever Ruvalcaba M.D ([email or web address]) Technologist: JUSTINE Exam Location: [facility] Indication: LV FUNCTION BP: 130 / 80 HR: 78 Rhythm: Sinus Technical Quality: Adequate MEASUREMENTS (Male / Female) Normal Values 2D ECHO LV Diastolic Diameter PLAX 4.7 cm 4.2 - 5.9 / 3.9 - 5.3 cm IVS Diastolic Thickness 1.2 cm 0.6 - 1.0 / 0.6 - 0.9 cm IVS Systolic Thickness 1.4 cm LVPW Diastolic Thickness 1.6 cm 0.6 - 1.0 / 0.6 - 0.9 cm LVPW Systolic Thickness 1.7 cm LVOT Diameter 2.0 cm LV Ejection Fraction 2D Teich 44.0 % LV Ejection Fraction MOD 4C 39.6 % LV Ejection Fraction MOD 2C 58.3 % LV Ejection Fraction 2C AL 60.6 % LA Diameter 3.2 cm RA Systolic Volume 4C AL 23.8 ml RA Systolic Volume 4C MOD 23.1 ml LA Sys Volume AL 44.6 cm cubed LA Sys Volume Index AL 18.8 cm cubed/m squared Aorta at Sinotubular Diameter 2.3 cm IVC Diameter 1.4 cm M-MODE LA Ao Ratio MM 1.2 AV Cusp Separation MM 1.8 cm DOPPLER AV Peak Velocity 165.0 cm/s LVOT Peak Velocity 117.0 cm/s AV Area Cont Eq vti 2.1 cm squared AV Area Cont Eq pk 2.2 cm squared MV Peak Velocity 124.0 cm/s MV Area PHT 4.1 cm squared Mitral E to A Ratio 1.2 TR Peak Velocity 181.0 cm/s TR Peak Gradient 13.1 mmHg TR Mean Velocity 149.0 cm/s TR Mean Gradient 9.3 mmHg TR Velocity Time Integral 59.5 cm TV Peak E Velocity 64.0 cm/s Right Atrial Pressure 3.0 mmHg Pulmonary Artery Systolic Pressu 16.1 mmHg PV Peak Velocity 107.0 cm/s RV Ejection Time 0.3 s FINDINGS Left Ventricle Left ventricle is normal in size. LV systolic function is normal with EF of 50 to 55%. No regional wall motion abnormalities are seen. Right Ventricle Normal in size and function Right Atrium Normal in size Left Atrium Normal in size Mitral Valve Structurally normal mitral valve. Mild mitral regurgitation. Aortic Valve Structurally normal aortic valve. No significant stenosis. Tricuspid Valve Mild tricuspid regurgitation. Pulmonary artery systolic pressure is normal. Pulmonic Valve Not well visualized Pericardium Normal Aorta Normal in size IVC Appears to be normal CONCLUSIONS LV systolic function is normal with EF of 50-55% Mild mitral regurgitation Mild tricuspid regurgitation Compared to prior echocardiogram from 04/2023, LV systolic function has improved significantly and is normal now. Ever Ruvalcaba MD (Electronically Signed) Final Date: 08 December 2023 09:31 S
== END 2023-12-07 14:44 | disposition home or self-care (01) ==
LOC: RAD 14:43
PROVIDERS: PCP Nurse Practitioner Family; Visit Provider Internal Medicine
DX: R93.1 Abnormal findings on diagnostic imaging of heart and coronary circulation (principal); R06.02 Shortness of breath
CPT/HCPCS: 93306